=== PATIENT | male | born 1995 | race Caucasian/White ===

== ENCOUNTER 2022-03-19 10:02 | Observation (INO) | payer OTHER ==
[~2022-03-19] VITALS: Ht 171 cm; Wt 62.0 kg
[2022-03-19] MEDS ORDERED: DICYCLOMINE 10 MG/ML (BENTYL) 2 ML AMP IM STA (10:37)
[2022-03-19] MEDS ORDERED: KETOROLAC 30 MG/ML VIAL IVP STA (10:37)
[2022-03-19] MEDS ORDERED: NS IV 1000 ML 1,000 ML IV STA (10:37)
[2022-03-19] MEDS ORDERED: ONDANSETRON 4 MG/2 ML (SDV) Z0FRAN IVP STA (10:37)
[2022-03-19 10:41] LABS: BASOPHILS % (AUTO) 0 % (0-10); EOSINOPHILS % (AUTO) 0 % (0-10); HEMATOCRIT 42 % (40-54); LYMPHOCYTES # (AUTO) 0.7 10^3/uL (1.0-4.0); LYMPHOCYTES % (AUTO) 6 % (12-44); MEAN CORPUSCULAR HEMOGLOBIN 31 pg (25-34); MEAN CORPUSCULAR HGB CONC 35 g/dL (32-36); MEAN CORPUSCULAR VOLUME 88 fL (80-99); MEAN PLATELET VOLUME 9.6 fL (9.0-12.2); MONOCYTES # (AUTO) 0.7 10^3/uL (0.0-1.0); MONOCYTES % (AUTO) 6 % (0-12); NEUTROPHILS # (AUTO) 9.6 10^3/uL (1.8-7.8); NEUTROPHILS % (AUTO) 86 % (42-75); PLATELET COUNT 272 10^3/uL (130-400); WHITE BLOOD COUNT 11.1 10^3/uL (4.3-11.0)
[2022-03-19] MEDS ORDERED: IOHEXOL 350 MG/ML 100 ML (OMNIPAQUE 350) VIAL IV ONE (10:45)
[2022-03-19] MEDS ORDERED: HOLD METFORMIN - RECEIVED CONTRAST 20 ML VIAL IV SCH (10:45)
[2022-03-19] MEDS ORDERED: NS 100 ML (IVPB) BAG IV ONE (10:45)
--- NOTE | 2022-03-19 10:52 | ED GI ---
General Chief Complaint: Abdominal/GI Problems Stated Complaint: ABD PAIN Source of Information: Patient History of Present Illness Date Seen by Provider: Mar 19, 2022 Time Seen by Provider: 10:11 Initial Comments 26 yo male presenting with complaint of pain to abdomen x 2 days. He reports the pain feels similar to when he had to have his appendix removed around 2015. He also has had mucousy stool with green color to it. He has nausea but no vomiting. He denies any recent travel, camping, eating different foods or having other people with similar symptoms. Timing/Duration: 2-3 Days Severity/Quality: Mild (currently but severe at times), Cramping Location: RLQ, LLQ, Suprapubic Radiation: No Radiation Activities at Onset: None Modifying Factors: Worsens With Coughing Associated Symptoms: No Back Pain, No Chest Pain, No Diaphoresis, No Fever/Chills, No Fatigue, No Headache, No Heartburn; Nausea/Vomiting (nausea but no vomiting); No Rash, No Shortness of Air, No Swelling/Mass in Abdomen, No Syncope, No Weakness Allergies and Home Medications Allergies Coded Allergies: No Known Drug Allergies (Unverified , 03/19/22) Patient Home Medication List Home Medication List Reviewed: Yes Review of Systems Review of Systems Constitutional: No chills, No fever EENTM: No Symptoms Reported Respiratory: No Symptoms Reported Cardiovascular: No Symptoms Reported Gastrointestinal: See HPI Genitourinary: Denies Burning, Denies Pain Musculoskeletal: no symptoms reported Skin: No rash Psychiatric/Neurological: No Symptoms Reported Endocrine: No Symptoms Reported Past Iqclcxg-Uqshky-Qscxzs Hx Patient Social History Tobacco Use?: Yes Tobacco type used: Cigarettes Smoking Status: Current Someday Smoker Use of E-Cig and/or Vaping dev: No Substance use?: No Alcohol Use?: Yes Alcohol type: Beer Alcohol Frequency: Once in a while Pt feels they are or have been: No Past Medical History Surgery/Hospitalization HX: Appendectomy Surgeries: Yes Appendectomy Physical Exam Vital Signs Vital Signs - First Documented 03/19/22 10:11 Temp 36.5 Pulse 88 Resp 16 B/P (MAP) 133/95 (108) Pulse Ox 99 O2 Delivery Room Air Capillary Refill : Height/Weight/BMI Height: '" Weight: lbs. oz. kg; BMI Method: General Appearance: WD/WN, mild distress HEENT: PERRL/EOMI, pharynx normal Neck: non-tender, full range of motion, supple, normal inspection Respiratory: chest non-tender, lungs clear, normal breath sounds, no respiratory distress, no accessory muscle use Cardiovascular: normal peripheral pulses, regular rate, rhythm Gastrointestinal: soft, no pulsatile mass, abnormal bowel sounds (hyperactive); No distended; guarding; No rebound; tenderness (lower half of abdomen) Rectal: deferred Extremities: normal range of motion, non-tender, normal capillary refill Neurologic/Psychiatric: 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 II-XII nml as tested, alert, oriented x 3 Skin: normal color, warm/dry Progress/Results/Core Measures Results/Orders Lab Results Laboratory Tests Test 03/19/22 10:20 03/19/22 11:13 Range/Units White Blood Count 11.1 H 4.3-11.0 10^3/uL Red Blood Count 4.84 4.30-5.52 10^6/uL Hemoglobin 15.0 13.3-17.7 g/dL Hematocrit 42 40-54 % Mean Corpuscular Volume 88 80-99 fL Mean Corpuscular Hemoglobin 31 25-34 pg Mean Corpuscular Hemoglobin Concent 35 32-36 g/dL Red Cell Distribution Width 12.2 10.0-14.5 % Platelet Count 272 130-400 10^3/uL Mean Platelet Volume 9.6 9.0-12.2 fL Immature Granulocyte % (Auto) 0 % Neutrophils (%) (Auto) 86 H 42-75 % Lymphocytes (%) (Auto) 6 L 12-44 % Monocytes (%) (Auto) 6 0-12 % Eosinophils (%) (Auto) 0 0-10 % Basophils (%) (Auto) 0 0-10 % Neutrophils # (Auto) 9.6 H 1.8-7.8 10^3/uL Lymphocytes # (Auto) 0.7 L 1.0-4.0 10^3/uL Monocytes # (Auto) 0.7 0.0-1.0 10^3/uL Eosinophils # (Auto) 0.0 0.0-0.3 10^3/uL Basophils # (Auto) 0.0 0.0-0.1 10^3/uL Immature Granulocyte # (Auto) 0.0 0.0-0.1 10^3/uL Neutrophils % (Manual) 77 % Lymphocytes % (Manual) 6 % Monocytes % (Manual) 6 % Eosinophils % (Manual) 0 % Basophils % (Manual) 0 % Band Neutrophils 11 % Sodium Level 134 L 135-145 MMOL/L Potassium Level 3.9 3.6-5.0 MMOL/L Chloride Level 97 L 98-107 MMOL/L Carbon Dioxide Level 24 21-32 MMOL/L Anion Gap 13 5-14 MMOL/L Blood Urea Nitrogen 6 L 7-18 MG/DL Creatinine 0.80 0.60-1.30 MG/DL Estimat Glomerular Filtration Rate 125 BUN/Creatinine Ratio 8 Glucose Level 98 70-105 MG/DL Calcium Level 10.0 8.5-10.1 MG/DL Corrected Calcium 8.5-10.1 MG/DL Total Bilirubin 0.8 0.1-1.0 MG/DL Aspartate Amino Transf (AST/SGOT) 23 5-34 U/L Alanine Aminotransferase (ALT/SGPT) 14 0-55 U/L Alkaline Phosphatase 71 40-136 U/L Total Protein 8.3 H 6.4-8.2 GM/DL Albumin 5.0 H 3.2-4.5 GM/DL Lipase 23 8-78 U/L Serum Alcohol < 10 <10 MG/DL SARS-CoV-2 RNA (RT-PCR) Not Detected Not Detecte My Orders Orders - HECTOR WESLEY MD Stool Culture (03/19/22 10:32) Fecal Wbc (03/19/22 10:32) C Difficile Ag + Toxin A/B. (03/19/22 10:32) Comprehensive Metabolic Panel (03/19/22 10:32) Lipase (03/19/22 10:32) Ua Culture If Indicated (03/19/22 10:32) Ed Iv/Invasive Line Start (03/19/22 10:32) Cbc With Automated Diff (03/19/22 10:32) Ct Abdomen/Pelvis W (03/19/22 10:32) Drug Screen Stat (Urine) (03/19/22 10:32) Alcohol (03/19/22 10:32) Covid 19 Inhouse Test (03/19/22 10:32) Ns Iv 1000 Ml (Sodium Chloride 0.9%) (03/19/22 10:37) Dicyclomine Injection (Bentyl Injection) (03/19/22 10:37) Ketorolac Injection (Toradol Injection) (03/19/22 10:37) Ondansetron Injection (Zofran Injectio (03/19/22 10:37) Iohexol Injection (Omnipaque 350 Mg/Ml 1 (03/19/22 10:45) Received Contrast (Hold Metformin- Contr (03/19/22 10:45) Ns (Ivpb) (Sodium Chloride 0.9% Ivpb Bag (03/19/22 10:45) Manual Differential (03/19/22 10:20) Medications Given in ED Current Medications Medications Dose Ordered Sig/Teresa Route Start Time Stop Time Status Last Admin Dose Admin Iohexol 100 ml ONCE ONCE IV 03/19/22 10:45 03/19/22 10:46 DC 03/19/22 11:00 100 ML Sodium Chloride 100 ml ONCE ONCE IV 03/19/22 10:45 03/19/22 10:46 DC 03/19/22 11:00 100 ML Vital Signs/I&O 03/19/22 10:11 Temp 36.5 Pulse 88 Resp 16 B/P (MAP) 133/95 (108) Pulse Ox 99 O2 Delivery Room Air Progress Progress Note #1: Progress Note Obtain basic labs as well as urine and order CT scan of his abdomen pelvis for his lower abdominal pain. Blood cultures with lactic acid as well as stool josé miguel dies were sent. Give normal saline 1 L IV fluid bolus. For his pain try a dose of Toradol and Zofran as well as Bentyl.. Progress Note #2: Progress Note White blood cell count was at the upper limits of normal at 11.1. Chemistry showed an elevated CRP but his lactic acid was normal. CT scan came back showing pancolitis. There is no fluid collection or abscess. Will check with Dr. Foster about admit for pancolitis and antibiotics. After discussing with Dr. Foster she requested Surgery be notified of consult. Given Flagyl and Rocephin for antibiotic coverage. Pt requested to go by POV and after checking with Dr. Foster pt will go by POV after antibiotics are started. Stressed importance of going straight to the hospital and not to eat anything before he goes. He signed declination of service notice about not taking EMS for transport. Diagnostic Imaging Diagonstic Imaging: CT Plain Films/CT/US/NM/MRI: abdomen, pelvis Comments NAME: EBONY GUIDO [facility] REC#: [id number] PT STATUS: REG ER : 1995 PHYSICIAN: HECTOR WESLEY MD ADMIT DATE: 03/19/22/ER FS Draft Date of Exam:03/19/22 CT ABDOMEN/PELVIS W EXAMINATION: CT abdomen and pelvis with intravenous contrast. TECHNIQUE: Multiple contiguous axial images were obtained through the abdomen and pelvis after the uneventful administration of intravenous contrast. All CT scans use one or more of the following dose optimizing techniques: automated exposure control, MA and/or KvP adjustment based on patient size and exam type or iterative reconstruction. HISTORY: Diarrhea. Nausea. Lower abdominal pain. COMPARISON: None available. FINDINGS: The heart is unremarkable. The included lung bases are clear. The liver, spleen, pancreas, adrenal glands, and kidneys have a normal appearance. The gallbladder is mildly distended without evidence of cholelithiasis. Mildly prominent mesenteric lymph nodes are seen in the right lower quadrant, likely reactive. The bowel loops are nondilated. The appendix is nonvisualized and may be surgically absent. There is generalized wall thickening of the colon. Small amount of free fluid is seen in the pelvis. There is no free air. No acute osseous abnormalities. The urinary bladder is nondistended. There is generalized bladder wall thickening. There is no free air, loculated collection, or adenopathy in the pelvis. IMPRESSION: 1. Findings suggestive of pancolitis. No bowel obstruction. No free air. 2. Nonspecific small amount of free fluid in the pelvis. 3. Bladder wall thickening, which may be due to inadequate distention versus cystitis. Recommend correlation with patient history and if indicated correlation with UA. Dictated on workstation # [id number] Dict: 03/19/22 1108 Trans: 03/19/22 1112 [facility] [id number] Interpreted by: YSABEL WELLINGTON DO Electronically signed by: Reviewed: Reviewed by Me Departure Communication (Admissions) Time/Spoke to Admitting Phy: 12:11 d/w Dr. Foster and she accepted pt for admit Time/Spoke to Consulting Phy: 12:14 d/w Dr. Stoner about consult for pancolitis. He requested clear liquid diet but was agreeable with the Flagyl and Rocephin. Impression Primary Impression: Pancolitis Additional Impression: Lower abdominal pain Disposition: 30 STILL A PATIENT Condition: Stable Admissions Decision to Admit Reason: Admit from ER (General) Decision to Admit/Date: Mar 19, 2022 Time/Decision to Admit Time: 12:11 Departure-Patient Inst. Referrals: NO,LOCAL PHYSICIAN (PCP/Family) Primary Care Physician HECTOR WESLEY MD Mar 19, 2022 10:52
[2022-03-19 10:59] LABS: ALANINE AMINOTRANSFERASE 14 U/L (0-55); ALKALINE PHOSPHATASE 71 U/L (40-136); BILIRUBIN,TOTAL 0.8 MG/DL (0.1-1.0); BUN/CREATININE RATIO 8; CARBON DIOXIDE 24 MMOL/L (21-32); CHLORIDE 97 MMOL/L (98-107); GFR ESTIMATED 125; GLUCOSE 98 MG/DL (70-105); POTASSIUM 3.9 MMOL/L (3.6-5.0); SODIUM 134 MMOL/L (135-145); TOTAL PROTEIN 8.3 GM/DL (6.4-8.2)
[2022-03-19 11:00] LABS: LIPASE 23 U/L (8-78)
[2022-03-19 11:09] LABS: BAND NEUTROPHILS 11 %; BASOPHILS % (MANUAL) 0 %; EOSINOPHILS % (MANUAL) 0 %; LYMPHOCYTES % (MANUAL) 6 %; MONOCYTES % (MANUAL) 6 %; NEUTROPHILS % (MANUAL) 77 %
--- NOTE | 2022-03-19 11:12 | Diagnostic Imaging Report ---
EXAMINATION: CT abdomen and pelvis with intravenous contrast. TECHNIQUE: Multiple contiguous axial images were obtained through the abdomen and pelvis after the uneventful administration of intravenous contrast. All CT scans use one or more of the following dose optimizing techniques: automated exposure control, MA and/or KvP adjustment based on patient size and exam type or iterative reconstruction. HISTORY: Diarrhea. Nausea. Lower abdominal pain. COMPARISON: None available. FINDINGS: The heart is unremarkable. The included lung bases are clear. The liver, spleen, pancreas, adrenal glands, and kidneys have a normal appearance. The gallbladder is mildly distended without evidence of cholelithiasis. Mildly prominent mesenteric lymph nodes are seen in the right lower quadrant, likely reactive. The bowel loops are nondilated. The appendix is nonvisualized and may be surgically absent. There is generalized wall thickening of the colon. Small amount of free fluid is seen in the pelvis. There is no free air. No acute osseous abnormalities. The urinary bladder is nondistended. There is generalized bladder wall thickening. There is no free air, loculated collection, or adenopathy in the pelvis. IMPRESSION: 1. Findings suggestive of pancolitis. No bowel obstruction. No free air. 2. Nonspecific small amount of free fluid in the pelvis. 3. Bladder wall thickening, which may be due to inadequate distention versus cystitis. Recommend correlation with patient history and if indicated correlation with UA. Dictated by: Dictated on workstation # [id number]
[2022-03-19] MEDS ORDERED: metroNIDAZOLE 500MG/100ML IVPB 100 ML IV STA (12:17)
[2022-03-19] MEDS ORDERED: cefTRIAXone 1 GM PRE-MIX 50 ML IV STA (12:17)
[2022-03-19 14:01] LABS: BILIRUBIN,URINE NEGATIVE (NEGATIVE); CLARITY,URINE CLEAR; COLOR,URINE YELLOW; GLUCOSE, URINE (UA) NEGATIVE (NEGATIVE); KETONES,URINE 1+ (NEGATIVE); LEUKOCYTE ESTERASE ,URINE NEGATIVE (NEGATIVE); NITRITE,URINE NEGATIVE (NEGATIVE); PH,URINE 6.5 (5-9); PROTEIN,URINE NEGATIVE (NEGATIVE)
[2022-03-19 14:26] LABS: BACTERIA,URINE NEGATIVE /HPF; WBC,URINE RARE /HPF
[2022-03-19 14:27] LABS: AMPHETAMINE SCREEN, URINE NEGATIVE (NEGATIVE); BARBITURATE SCREEN URINE NEGATIVE (NEGATIVE); BENZODIAZEPINES SCREEN URINE NEGATIVE (NEGATIVE); CANNABINOID SCREEN, URINE POSITIVE (NEGATIVE); COCAINE SCREEN URINE NEGATIVE (NEGATIVE); METHADONE STAT NEGATIVE (NEGATIVE); OPIATE SCREEN URINE NEGATIVE (NEGATIVE); OXYCODONE STAT NEGATIVE (NEGATIVE); PROPOXYPHENE STAT NEGATIVE (NEGATIVE); TRICYCLIC ANTIDEPRESSANTS SCRE NEGATIVE (NEGATIVE)
[2022-03-19 15:00] VITALS: BP 116/77
[2022-03-19] MEDS ORDERED: MELATONIN 3 MG TABLET PO PRN (16:15)
[2022-03-19] MEDS ORDERED: ANTACID SUSP 30 ML UDC (MYLANTA) PO PRN (16:15)
[2022-03-19] MEDS ORDERED: fentaNYL INJ 100 MCG/2 ML AMP IVP PRN (16:15)
[2022-03-19] MEDS ORDERED: ONDANSETRON 4 MG/2 ML (SDV) Z0FRAN IV PRN ×2 (16:15)
[2022-03-19] MEDS ORDERED: PROMETHAZINE INJ 25 MG/ML (PHENERGAN) AMP IVP PRN (16:15)
[2022-03-19] MEDS ORDERED: BENZONATATE 100 MG (TESSALON) CAPSULE PO PRN (16:15)
[2022-03-19] MEDS: cefTRIAXone 1 GM PRE-MIX 50 ML IV SCH (17:00)
[2022-03-19] MEDS ORDERED: DICYCLOMINE 10 MG (BENTYL) CAP PO PRN (17:15)
[2022-03-19] MEDS: ENOXAPARIN 40 MG/0.4 ML (LOVENOX) SYR SC SCH (17:23)
[2022-03-19] MEDS: KETOROLAC 30 MG/ML VIAL IVP PRN (17:32)
--- NOTE | 2022-03-19 18:38 | CONSULTATION REPORT ---
DATE OF SERVICE: 03/19/2022 ADMITTING PHYSICIAN: Dr. Foster. HISTORY OF PRESENT ILLNESS: The patient is a 26-year-old male who presented to [facility] with a 2-day history of abdominal pain. He reports that the pain has been in the mid abdominal region; however, appears to be diffuse. He also reports that he has had some loose stools, but does not recall any red blood per rectum. He also reports some mild nausea; however, no vomiting. He does not report any recent travel as well as no unusual food or water drinking source. He also does not report taking antibiotics for any other reason in the recent past. A CT scan was performed, which did show colitis encompassing the ascending, transverse and descending colon. He states that he had somewhat similar symptoms a few years ago and was diagnosed with appendicitis and underwent a laparoscopic appendectomy at that time. PAST MEDICAL HISTORY: None. PAST SURGICAL HISTORY: Laparoscopic appendectomy. ALLERGIES: No known drug allergies. MEDICATIONS: None. SOCIAL HISTORY: Positive smoke, does drink one or two beers daily. FAMILY HISTORY: Paternal aunt, leukemia. VITAL SIGNS: Temperature 37.1, blood pressure 121/61, pulse 81, respirations 16, pulse ox 99% on room air. REVIEW OF SYSTEMS: A well-nourished male currently in no acute distress. He is not experiencing any shortness of breath or difficulty breathing. No chest pain, palpitations, diaphoresis. Intermittent episodes of nausea, no vomiting with several episodes of loose stools. No red blood per rectum, no dark tarry stools. He does not recall any fever nor chills at home. He has had a diffuse, crampy abdominal pain for the past 3 days and may have had similar symptoms approximately 2 years ago. No fever, chills, no recent inadvertent weight loss. All other review of systems negative. PHYSICAL EXAMINATION: CHEST: Clear. Good breath sounds bilaterally. HEART: Regular, no murmurs. EXTREMITIES: No lower extremity edema, negative Homans sign. HEENT: No scleral icterus. NECK: No cervical lymphadenopathy. ABDOMEN: Soft, nondistended. There is pain in the mid abdominal region; however, is also elicited in the upper and lower abdominal quadrants. There is voluntary guarding, no rebound. No hernias. LABORATORY DATA: WBC 11.1, hemoglobin 15.0, hematocrit 42, platelets 272, BUN 6, creatinine 0.80. Liver function enzymes are normal. ASSESSMENT AND PLAN: A 26-year-old male with a pancolitis, which may be secondary to viral etiology; however, could be also due to just eating bad food or spoiled food. This may also represent undiagnosed low level inflammatory bowel disease and we will proceed with conservative management for now with bowel rest and clear liquid diet as well as continued antibiotics and once he is feeling better, we will also recommend a followup outpatient colonoscopy within the next few weeks as well as biopsies as appropriate. Job ID: [id number] DocumentID: [id number] Dictated Date: 03/19/2022 17:55:49 Grain Shipper Date: 03/19/2022 18:37:13 Dictated By: JACK RUSSELL MD
[2022-03-19 19:35] VITALS: BP 115/73
[2022-03-19] MEDS: metroNIDAZOLE 500MG/100ML IVPB 100 ML IV SCH (21:27)
[2022-03-20] VITALS: BP 114/72
[2022-03-20 03:24] VITALS: BP 108/70
[2022-03-20] MEDS: metroNIDAZOLE 500MG/100ML IVPB 100 ML IV SCH ×3 (05:28→21:30)
[2022-03-20 06:00] LABS: HEMATOCRIT 36 % (40-54); HEMOGLOBIN 12.7 g/dL (13.3-17.7); MEAN CORPUSCULAR HEMOGLOBIN 32 pg (25-34); MEAN CORPUSCULAR HGB CONC 35 g/dL (32-36); MEAN CORPUSCULAR VOLUME 90 fL (80-99); MEAN PLATELET VOLUME 9.3 fL (9.0-12.2); PLATELET COUNT 220 10^3/uL (130-400); WHITE BLOOD COUNT 7.2 10^3/uL (4.3-11.0)
[2022-03-20 06:18] LABS: POTASSIUM 3.7 MMOL/L (3.6-5.0)
[2022-03-20 06:23] LABS: CREATININE SERUM 0.72 MG/DL (0.60-1.30)
[2022-03-20 07:34] VITALS: BP 119/69
--- NOTE | 2022-03-20 09:16 | History & Physical-Hospitalist ---
History of Present Illness HPI/Chief Complaint Patient is a 26-year-old male with no known past medical history who presented to the emergency department due to abdominal pain and diarrhea. He states that his symptoms started on March 17 and continued to worsen over the past couple of days. He states the pain was similar to when he had appendicitis and he was unable to find a comfortable seating position. He had multiple episodes of diarrhea as well. He was nauseated but did not vomit. His reports he had a fever on the and as well. Source: patient Date Seen 03/20/22 Time Seen by a Provider: 09:15 Attending Physician No,Local Physician PCP Admitting Physician: Jocelin Foster MD Attending Physician: Jocelin Foster MD Referring Physician Date of Admission Mar 19, 2022 at 15:58 Home Medications & Allergies Home Medications Reviewed patient Home Medication Reconciliation performed by pharmacy medication reconciliations roof technician and/or nursing. Patients Allergies have been reviewed. Allergies Allergies Coded Allergies No Known Drug Allergies (Unverified03/19/22) Past Gboqksw-Nkexxs-Jvjzqx Hx Patient Social History Marrital Status: Tobacco Use?: Yes Tobacco type used: Cigarettes Smoking Status: Light Tobacco Smoker Use of E-Cig and/or Vaping dev: No Substance use?: No Alcohol Use?: Yes Alcohol type: Beer Alcohol Frequency: Couple times a week Pt feels they are or have been: No Immunizations Up To Date Tetanus Booster (TDap): More Than 5 Years Hepatitis A: No Hepatitis B: No Current Status Advance Directives: No Communicates: Verbally Primary Language: Belarusian Preferred Spoken Language: Belarusian Is interpretation needed?: No Implanted or Applied Medical D: None Past Medical History Surgeries: Appendectomy Family Medical History Reviewed Nursing Family Hx No Pertinent Family Hx Review of Systems Constitutional: chills, fever EENTM: no symptoms reported Respiratory: no symptoms reported Cardiovascular: no symptoms reported Gastrointestinal: see HPI Genitourinary: no symptoms reported Musculoskeletal: no symptoms reported Skin: no symptoms reported Psychiatric/Neurological: No Symptoms Reported Physical Exam Physical Exam Vital Signs Vital Signs - First Documented 03/19/22 10:11 Temp 36.5 Pulse 88 Resp 16 B/P (MAP) 133/95 (108) Pulse Ox 99 O2 Delivery Room Air Capillary Refill : Less Than 3 Seconds Height, Weight, BMI Height: '" Weight: lbs. oz. kg; 20.92 BMI Method: General Appearance: No Apparent Distress, WD/WN HEENT: PERRL/EOMI, Moist Mucous Membranes; No Scleral Icterus (L), No Scleral Icterus (R) Neck: Normal Inspection, Supple Respiratory: Lungs Clear, No Accessory Muscle Use, No Respiratory Distress Cardiovascular: Regular Rate, Rhythm, No Murmur Gastrointestinal: Normal Bowel Sounds, Soft; No Distended, No Guarding; Tenderness (diffuse and mild) Extremity: Normal Capillary Refill, No Calf Tenderness, No Pedal Edema Neurologic/Psychiatric: Alert, Oriented x3, Normal Mood/Affect Results Results/Procedures Labs Laboratory Tests 03/19/22 10:20 03/20/22 05:50 Patient resulted labs reviewed. Imaging: Reviewed Imaging Report Imaging [facility] [place] NAME: EBONY GUIDO [facility] REC#: [id number] PT STATUS: REG ER : 1995 PHYSICIAN: HECTOR WESLEY MD ADMIT DATE: 03/19/22/ER FS Signed Date of Exam:03/19/22 CT ABDOMEN/PELVIS W EXAMINATION: CT abdomen and pelvis with intravenous contrast. TECHNIQUE: Multiple contiguous axial images were obtained through the abdomen and pelvis after the uneventful administration of intravenous contrast. All CT scans use one or more of the following dose optimizing techniques: automated exposure control, MA and/or KvP adjustment based on patient size and exam type or iterative reconstruction. HISTORY: Diarrhea. Nausea. Lower abdominal pain. COMPARISON: None available. FINDINGS: The heart is unremarkable. The included lung bases are clear. The liver, spleen, pancreas, adrenal glands, and kidneys have a normal appearance. The gallbladder is mildly distended without evidence of cholelithiasis. Mildly prominent mesenteric lymph nodes are seen in the right lower quadrant, likely reactive. The bowel loops are nondilated. The appendix is nonvisualized and may be surgically absent. There is generalized wall thickening of the colon. Small amount of free fluid is seen in the pelvis. There is no free air. No acute osseous abnormalities. The urinary bladder is nondistended. There is generalized bladder wall thickening. There is no free air, loculated collection, or adenopathy in the pelvis. IMPRESSION: 1. Findings suggestive of pancolitis. No bowel obstruction. No free air. 2. Nonspecific small amount of free fluid in the pelvis. 3. Bladder wall thickening, which may be due to inadequate distention versus cystitis. Recommend correlation with patient history and if indicated correlation with UA. Dictated by: Dictated on workstation # [id number] Dict: 03/19/22 1108 Trans: 03/19/22 1129 [facility] [id number] Interpreted by: YSABEL WELLINGTON DO Electronically signed by: YSABEL WELLINGTON DO 03/19/22 1129 Assessment/Plan Admission Diagnosis colitis Admission Status: Observation Assessment and Plan colitis Surgery consulted, appreciate recs Continue IV abx CLD- can advance diet later if he is feeling well Zofran for nausea Toradol for pain, fentanyl for breakthrough pain will need outpatient colonoscopy in a few weeks when inflammation improved DVT ppx: Ambulation Diagnosis/Problems Diagnosis/Problems (1) Pancolitis Status: Acute JOCELIN FOSTER MD Mar 20, 2022 09:16
[2022-03-20 11:17] VITALS: BP 115/75
--- NOTE | 2022-03-20 14:12 | Progress Note ---
Subjective Date Seen by a Provider: Mar 20, 2022 Time Seen by a Provider: 14:10 Subjective/Events-last exam Patient seen with Dr. Stoner. Patient reports still having abdominal pain but is improved from yesterday. Occasional nausea but no vomiting. Tolerating some clear liquids and having bowel movements. Objective Exam Vital Signs Date Time Temp Pulse Resp B/P (MAP) Pulse Ox O2 Delivery O2 Flow Rate FiO2 03/20/22 11:17 37.2 64 18 115/75 (88) 97 Room Air 03/20/22 08:00 Room Air 03/20/22 07:34 37.2 70 18 119/69 (86) 97 Room Air 03/20/22 03:24 36.6 55 16 108/70 (83) 98 Room Air 03/20/22 00:00 37.5 104 16 114/72 (86) 97 Room Air 03/19/22 20:00 Room Air 03/19/22 19:35 37.0 61 18 115/73 (87) 97 Room Air 03/19/22 16:44 Room Air 03/19/22 15:02 37.1 81 16 121/61 99 Room Air 03/19/22 15:00 37.4 87 17 116/77 (90) 98 Room Air I & O 03/20/22 07:00 Intake Total 3260 ml Balance 3260 ml Capillary Refill : Less Than 3 Seconds General Appearance: No Apparent Distress, WD/WN Neck: Normal Inspection, Supple Respiratory: No Accessory Muscle Use, No Respiratory Distress Gastrointestinal: normal bowel sounds, soft, tenderness (mid-upper abdomen) Extremity: Normal Inspection, Normal Range of Motion Neurologic/Psychiatric: Alert, Oriented x3 Skin: Normal Color, Warm/Dry Results Lab Laboratory Tests 03/20/22 05:50: White Blood Count 7.2, Red Blood Count 4.01L, Hemoglobin 12.7L, Hematocrit 36L, Mean Corpuscular Volume 90, Mean Corpuscular Hemoglobin 32, Mean Corpuscular Hemoglobin Concent 35, Red Cell Distribution Width 12.4, Platelet Count 220, Mean Platelet Volume 9.3, Sodium Level 138, Potassium Level 3.7, Chloride Level 105, Carbon Dioxide Level 17L, Anion Gap 16H, Blood Urea Nitrogen 6L, Creatinine 0.72, Estimat Glomerular Filtration Rate 129, BUN/Creatinine Ratio 8, Glucose Level 85, Calcium Level 9.0 Microbiology 03/19/22 C. difficile GDH Antigen & Toxins - Final, Complete Assessment/Plan Assessment/Plan Assess & Plan/Chief Complaint A 26-year-old male with a pancolitis, which may be secondary to viral etiology vs bacteria vs inflammatory bowel disease VSS WBC 7.2 Continue IV abx, pain and nausea meds Can advance diet as tolerated Will need colonoscopy on an outpatient basis with biopsies JENNIFER CORTES SEXUAL ASSAULT RESPONSE COORDINATOR Mar 20, 2022 14:12
[2022-03-20] MEDS: ENOXAPARIN 40 MG/0.4 ML (LOVENOX) SYR SC SCH (14:26)
[2022-03-20] MEDS: cefTRIAXone 1 GM PRE-MIX 50 ML IV SCH (14:26)
[2022-03-20 15:38] VITALS: BP 127/76
[2022-03-20] MEDS: KETOROLAC 30 MG/ML VIAL IVP PRN ×2 (16:50→23:48)
[2022-03-20 19:11] VITALS: BP 113/68
[2022-03-21] VITALS: BP 96/62
[2022-03-21 03:59] VITALS: BP 95/65
[2022-03-21] MEDS: metroNIDAZOLE 500MG/100ML IVPB 100 ML IV SCH ×2 (05:40→13:30)
[2022-03-21 05:49] LABS: HEMATOCRIT 35 % (40-54); HEMOGLOBIN 12.3 g/dL (13.3-17.7); MEAN CORPUSCULAR HEMOGLOBIN 31 pg (25-34); MEAN CORPUSCULAR HGB CONC 35 g/dL (32-36); MEAN CORPUSCULAR VOLUME 88 fL (80-99); MEAN PLATELET VOLUME 9.7 fL (9.0-12.2); PLATELET COUNT 246 10^3/uL (130-400); WHITE BLOOD COUNT 8.5 10^3/uL (4.3-11.0)
[2022-03-21 06:07] LABS: POTASSIUM 3.5 MMOL/L (3.6-5.0)
[2022-03-21 06:13] LABS: CREATININE SERUM 0.69 MG/DL (0.60-1.30)
[2022-03-21 07:30] VITALS: BP 102/62
[2022-03-21] MEDS ORDERED: METR-145 PO (09:50)
[2022-03-21] MEDS ORDERED: CEPH500T PO (09:50)
--- NOTE | 2022-03-21 09:52 | Discharge Inst-Simple/Standard ---
Discharge Inst-Standard Discharge Medications New, Converted or Re-Newed RX: Transmitted to Pharmacy Patient Instructions/Follow Up Plan of Care/Instructions/FU: Please continue to take your medications as written. Please follow up with your primary care doctor to follow up this hospital stay. Activity as Tolerated: Yes Discharge Diet: Soft Diet Return to The Hospital For: Chest pain, shortness of breath, fever, weakness, if you feel you are getting worse. JOCELIN HILLIARD MD Mar 21, 2022 09:52
--- NOTE | 2022-03-21 10:31 | Discharge Summary ---
Diagnosis/Chief Complaint Date of Admission Mar 19, 2022 at 15:58 Date of Discharge Discharge Date: Mar 21, 2022 Admission Diagnosis colitis Primary Care No,Local Physician Discharge Diagnosis (1) Pancolitis Status: Acute Discharge Summary Discharge Physical Exam Allergies: Coded Allergies: No Known Drug Allergies (Unverified , 03/19/22) Vitals & I&Os Vital Signs Date Time Temp Pulse Resp B/P (MAP) Pulse Ox O2 Delivery O2 Flow Rate FiO2 03/21/22 08:53 Room Air 03/21/22 07:30 37.2 72 18 102/62 (75) 96 General Appearance: No Apparent Distress, WD/WN Cardiovascular: Regular Rate, Rhythm, No Murmur Gastrointestinal: Normal Bowel Sounds, Non Tender, Soft Neurologic/Psychiatric: Alert, Oriented x3 Hospital Course Patient was admitted to the hospital secondary to pancolitis. He was treated with IV antibiotics and did very well. He was able to tolerate an advancing diet and was discharged home in stable improved condition. Surgery was consulted and recommended outpatient follow-up. He was informed that while this was treated as an infectious source he very well may have underlying inflammatory bowel disease and needs to follow-up with surgery for further work- up. He was discharged home in stable and improved condition to follow-up with Dr. RUSSELL and referred to local primary care physicians for primary care. Labs (last 24 hrs) Laboratory Tests 03/21/22 05:22: White Blood Count 8.5, Red Blood Count 3.94L, Hemoglobin 12.3L, Hematocrit 35L, Mean Corpuscular Volume 88, Mean Corpuscular Hemoglobin 31, Mean Corpuscular Hemoglobin Concent 35, Red Cell Distribution Width 12.2, Platelet Count 246, Mean Platelet Volume 9.7, Sodium Level 142, Potassium Level 3.5L, Chloride Level 105, Carbon Dioxide Level 21, Anion Gap 16H, Blood Urea Nitrogen 5L, Creatinine 0.69, Estimat Glomerular Filtration Rate 131, BUN/Creatinine Ratio 7, Glucose Level 86, Calcium Level 9.0 Microbiology 03/19/22 Stool Culture - Preliminary, Resulted Culture In Progress Patient resulted labs reviewed. Pending Labs Laboratory Tests 03/21/22 05:22: White Blood Count 8.5, Red Blood Count 3.94, Hemoglobin 12.3, Hematocrit 35, Mean Corpuscular Volume 88, Mean Corpuscular Hemoglobin 31, Mean Corpuscular He moglobin Concent 35, Red Cell Distribution Width 12.2, Platelet Count 246, Mean Platelet Volume 9.7, Sodium Level 142, Potassium Level 3.5, Chloride Level 105, Carbon Dioxide Level 21, Anion Gap 16, Blood Urea Nitrogen 5, Creatinine 0.69, Estimat Glomerular Filtration Rate 131, BUN/Creatinine Ratio 7, Glucose Level 86, Calcium Level 9.0 Imaging: Reviewed Imaging Report Discussion & Recommendations Discharge Planning: >30 minutes discharge planning Discharge Home Medications: Active Scripts Active Cephalexin 500 Mg Tablet 500 Mg PO BID Metronidazole 500 Mg Tablet 500 Mg PO BID Instructions to patient/family Please see electronic discharge instructions given to patient. JOCELIN HILLIARD MD Mar 21, 2022 10:31
[2022-03-21 11:27] VITALS: BP 111/66
--- NOTE | 2022-03-21 13:24 | Progress Note ---
Subjective Date Seen by a Provider: Mar 21, 2022 Time Seen by a Provider: 13:00 Subjective/Events-last exam doing better. tolerating regular diet. much less abd pain and diarrhea. Objective Exam Vital Signs Date Time Temp Pulse Resp B/P (MAP) Pulse Ox O2 Delivery O2 Flow Rate FiO2 03/21/22 11:27 36.7 67 18 111/66 (81) 96 Room Air 03/21/22 08:53 Room Air 03/21/22 07:30 37.2 72 18 102/62 (75) 96 Room Air 03/21/22 03:59 36.8 65 16 95/65 (75) 99 Room Air 03/21/22 00:00 36.8 61 16 96/62 (73) 97 Room Air 03/20/22 19:30 Room Air 03/20/22 19:11 36.7 64 18 113/68 (83) 97 Room Air 03/20/22 15:38 36.5 68 18 127/76 (93) 99 Room Air I & O 03/21/22 07:00 Intake Total 1490 ml Balance 1490 ml Capillary Refill : Less Than 3 Seconds General Appearance: No Apparent Distress HEENT: PERRL/EOMI Neck: Full Range of Motion Respiratory: Chest Non Tender, Lungs Clear, Normal Breath Sounds Cardiovascular: Regular Rate, Rhythm Gastrointestinal: normal bowel sounds, non tender, soft Extremity: Normal Capillary Refill Neurologic/Psychiatric: Alert, Oriented x3 Skin: Normal Color Lymphatic: No Adenopathy Results Lab Laboratory Tests 03/21/22 05:22: White Blood Count 8.5, Red Blood Count 3.94L, Hemoglobin 12.3L, Hematocrit 35L, Mean Corpuscular Volume 88, Mean Corpuscular Hemoglobin 31, Mean Corpuscular Hemoglobin Concent 35, Red Cell Distribution Width 12.2, Platelet Count 246, Mean Platelet Volume 9.7, Sodium Level 142, Potassium Level 3.5L, Chloride Level 105, Carbon Dioxide Level 21, Anion Gap 16H, Blood Urea Nitrogen 5L, Creatinine 0.69, Estimat Glomerular Filtration Rate 131, BUN/Creatinine Ratio 7, Glucose Level 86, Calcium Level 9.0 Microbiology 03/19/22 Stool Culture - Preliminary, Resulted Campylobacter jejuni Culture In Progress Assessment/Plan Assessment/Plan Assess & Plan/Chief Complaint colitis. much improved with abx. might be second episode and would recommend f/u colonoscopy in 2 weeks. may go home from surgery perspective. JACK RUSSELL MD Mar 21, 2022 13:24
[2022-03-21] MEDS ORDERED: AZIT500T9 PO (15:04)
[2022-03-21 15:25] VITALS: BP 111/66
== END 2022-03-21 15:05 | disposition home or self-care (01) ==
LOC: ER FS 10:05 → 4TH 15:58 → UNDOADMOB 15:58 → 4TH 16:18 → UNDODISOB 03-21 15:05
PROVIDERS: ADMIT Family Medicine; ATTEND Family Medicine
DX: K51.00 Ulcerative (chronic) pancolitis without complications (principal); F17.210 Nicotine dependence, cigarettes, uncomplicated
CPT/HCPCS: 36415; 74177; 80048 ×2; 80053; 80306; 81000; 83690; 85007; 85027 ×3; 87015; 87045; 87046; 87077; 87324; 87449; 87636; 87899; 96366 ×2; 96372 ×2; 96376 ×3; 99284; G0480; 80320; 85025; 96374; 96375; G0378; Q9967

== ENCOUNTER 2022-04-23 05:33 | Outpatient (CLI) | payer OTHER ==
[~2022-04-23] VITALS: Ht 170.2 cm; Wt 62.5 kg
[~2022-04-23 05:33] MED LIST: AZIT500T9 PO; CEPH500T PO; METR-145 PO
== END 2022-04-23 09:11 | disposition home or self-care (01) ==
LOC: PREOP 05:33
PROVIDERS: ATTEND Surgery
DX: Z01.818 Encounter for other preprocedural examination (principal)

== ENCOUNTER 2022-04-30 09:35 | Day surgery (SDC) | payer OTHER ==
[~2022-04-30] VITALS: Ht 170.2 cm; Wt 62.5 kg
[2022-04-30] MEDS ORDERED: LACTATED RINGERS 1,000 ML IV STA (09:39)
[2022-04-30] MEDS ORDERED: LACTATED RINGERS 1,000 ML IV ONE (09:41)
[2022-04-30] MEDS ORDERED: LIDOCAINE JELLY 2% 6 ML SYRINGE MM PRN (09:45)
[2022-04-30 09:50] VITALS: BP 124/85
[2022-04-30] MEDS ORDERED: PROPOFOL INJECTION 50 ML IV ONE (10:35)
[2022-04-30] MEDS ORDERED: MIDAZOLAM 2 MG/2 ML (VERSED) VIAL ONE (10:35)
--- NOTE | 2022-04-30 10:36 | Progress Note-Pre Operative ---
Pre-Operative Progress Note Date of Available H&P: Apr 30, 2022 Date H&P Reviewed: Apr 30, 2022 Time H&P Reviewed: 10:00 History & Physical: No changes noted Pre-Operative Diagnosis: hx colitis JACK RUSSELL MD Apr 30, 2022 10:36
--- NOTE | 2022-04-30 10:37 | Discharge Inst-Surgical ---
D/C Lap Instructions-YVONNE Follow Up Activity as tolerated High Fiber Diet 25g or more per day Avoid Alcohol, Caffeine, Spicy [place] and Acid foods. Drink 64 fluid oz or more of fluids per day. Symptoms to Report: Fever over 101 degree F, Nausea/Vomiting If any problems/questions: Contact your physician or go to Emergency Room JACK RUSSELL MD Apr 30, 2022 10:37
[2022-04-30] MEDS ORDERED: ONDANSETRON 4 MG (ZOFRAN) ORAL DISSOLVE TAB PO PRN (10:45)
[2022-04-30] MEDS ORDERED: ONDANSETRON 4 MG/2 ML (SDV) Z0FRAN IVP PRN (10:45)
[2022-04-30 11:10] VITALS: BP 119/72
[2022-04-30 11:15] VITALS: BP 126/70
--- NOTE | 2022-04-30 11:25 | Progress Note-Post Operative ---
Post-Operative Progess Note Surgeon (s)/Channel Cementer Outsole Machine (s) Surgeon JACK RUSSELL MD Channel Cementer Outsole Machine: none Pre-Operative Diagnosis hx colitis Post-Operative Diagnosis normal colon and rectum Procedure & Operative Findings Date of Procedure 04/30/22 Procedure Performed/Findings colonoscopy Anesthesia Type mac Estimated Blood Loss Estimated blood loss (mL): minimal Specimens/Packing Specimens Removed none JACK RUSSELL MD Apr 30, 2022 11:25
[2022-04-30 11:40] VITALS: BP 121/88
[2022-04-30 12:15] VITALS: BP 121/88
--- NOTE | 2022-04-30 20:23 | OPERATIVE REPORT ---
DATE OF SERVICE: 04/30/2022 PREOPERATIVE DIAGNOSIS: History of pancolitis. POSTOPERATIVE DIAGNOSES: Normal colon and rectum. PROCEDURE: Colonoscopy. SURGEON: Dr. Russell. ANESTHESIA: Monitored anesthesia care. ESTIMATED BLOOD LOSS: Minimal. FINDINGS: Normal colon and rectum. No mucosal inflammatory changes. DISPOSITION: The patient tolerated the procedure well. INDICATIONS: The patient is a 26-year-old male who was seen at [facility] and he presented to the Emergency Department with a 2-day history of crampy abdominal pain and diarrhea. He had a CT scan done, which did show colitis encompassing the ascending, transverse and descending colon. He had reported similar symptoms a few years prior and was diagnosed with appendicitis, underwent a laparoscopic appendectomy at that time. On this admission, he did have a slight leukocytosis of 11,000. It was treated conservatively with bowel rest, antibiotics, and this did improve over time. He does not report any family history of ulcerative colitis nor Crohn's disease. He states that he has not had any issues since discharged from the hospital. The patient was brought to the endoscopy suite, laid in the left lateral decubitus position. After adequate IV pain and sedative medications and monitored anesthesia care, digital rectal examination was performed. No significant hemorrhoids identified. Normal sphincter tone was felt and there were no palpable masses. Prostate gland was palpable and appeared normal. The endoscope was then intubated into the anus and rectum gently insufflated. The endoscope was then advanced to the valves of [place] on the rectum with no polyps or any neoplasm identified. We then proceeded through the sigmoid colon where no diverticulosis identified. The endoscope was then advanced through the remainder of the descending, transverse and ascending colon to the cecum, which were normal with no mucosal inflammatory changes to indicate any active colitis as well as no neoplastic neoplasms identified. The endoscope was then slowly withdrawn while taking a second look and suctioning of residual air with no additional findings. The patient tolerated the procedure well. We will recommend continued medical management with a high fiber diet with at least 30 grams of fiber daily as well as significant amounts of water to promote soft stools on a daily basis. We feel there is still a slight chance of undiagnosed inflammatory bowel disease and if he does have recurrent episodes of crampy abdominal pain and diarrhea, we will have him follow up. Job ID: [id number] DocumentID: [id number] Dictated Date: 04/30/2022 11:12:28 Confectionery Drops Machine Operator Date: 04/30/2022 20:22:07 Dictated By: JACK RUSSELL MD
== END 2022-04-30 12:30 | disposition home or self-care (01) ==
LOC: ENDO 09:35
PROVIDERS: ATTEND Surgery
DX: K52.9 Noninfective gastroenteritis and colitis, unspecified (principal); Z90.89 Acquired absence of other organs